=== PATIENT | female | born 1940 | race Caucasian/White ===

== ENCOUNTER 2018-11-25 12:45 | Emergency (ER) | payer MEDICARE ==
[2018-11-25] MEDS ORDERED: SUBLIMAZE 100 MCG/2 ML IV ONE ×3 (13:02→14:33)
[2018-11-25] MEDS ORDERED: SUBLIMAZE 100 MCG/2 ML ONE ×3 (13:04→14:35)
[2018-11-25] MEDS ORDERED: Sodium Chloride 0.9% 1000 ML 1,000 ML ONE (13:05)
--- NOTE | 2018-11-25 13:09 | ERPHSYRPT ---
- History of Present Illness Time Seen by Provider: 11/25/18 12:56 Source: patient, family Exam Limitations: no limitations Patient Subjective Stated Complaint: Pt states "I was getting out of the car and I slipped and my right hip really hurts." Triage Nursing Assessment: Pt alert and oriented X 3, skin pwd. Pt arrived in the ambulance bay via personal car. Pt right leg slightly shorter than the left. Pt has CSM X 4. PT moaning. Physician History: 78-year-old white female was brought by her son complains of pain in her right thigh knee hip symptoms since falling when getting getting into the car just prior to arrival. Patient has the above noted complaints. Past medical history includes migraines, coronary artery disease, hypercholesterolemia, high blood pressure, myocardial infarction, lung cancer, arthritis, osteoporosis, COPD, anxiety Past surgical history includes cardiac catheter, cardiac stent, lobectomy ( right and left lung, appendectomy, tubal ligation patient with a history of lung cancer with a nodule removed and lobectomy right and left lung Social history former smoker Timing/Duration: today (just prior to arrival) Severity: moderate Modifying Factors: Improves With: nothing Associated Symptoms: other (pain right thigh and knee), No nausea, No vomiting, No abdominal pain, No shortness of breath, No heartburn, No diaphoresis, No cough, No chills, No chest pain, No fever, No headaches, No loss of appetite, No malaise, No rash, No syncope, No seizure, No weakness Allergies/Adverse Reactions: morphine Adverse Reaction (Intermediate, Verified 05/26/15 03:19) PT STATES MAKES HER HEAR AND SEE THINGS THAT ARE NOT THERE. (HALLUCINATIONS) Home Medications: Multivitamin [Multi-Vitamin Daily] 1 each PO DAILY 08/09/14 [History] Aspirin [Ecotrin] 81 mg PO DAILY 05/25/15 [History] Atorvastatin Calcium [Lipitor 20MG Tablet] 20 mg PO DAILY 05/25/15 [History] Clopidogrel Bisulfate 75 mg [PLAVIX 75 MG Tablet] 75 mg PO DAILY 05/25/15 [History] Furosemide [Lasix] 40 mg PO DAILY 05/25/15 [History] Lisinopril 20 mg [Zestril 20 MG] 20 mg PO DAILY 05/25/15 [History] Hx Tetanus, Diphtheria Vaccination/Date Given: Yes Hx Influenza Vaccination/Date Given: Yes Hx Pneumococcal Vaccination/Date Given: Yes Immunizations Up to Date: Yes - Review of Systems Constitutional: No Fever, No Chills Eyes: No Symptoms Ears, Nose, & Throat: No Symptoms Respiratory: No Cough, No Dyspnea Cardiac: No Chest Pain, No Edema, No Syncope Abdominal/Gastrointestinal: No Abdominal Pain, No Nausea, No Vomiting, No Diarrhea Genitourinary Symptoms: No Dysuria Musculoskeletal: Fall, Other (pain right hip , thigh, knee), No Back Pain Skin: No Rash Neurological: No Dizziness, No Focal Weakness, No Sensory Changes Psychological: No Symptoms Endocrine: No Symptoms All Other Systems: Reviewed and Negative - Past Medical History Pertinent Past Medical History: Yes Neurological History: Migraines ENT History: No Pertinent History Cardiac History: Coronary Artery Disease, High Cholesterol, Hypertension, Myocardial Infarction ([place]) Respiratory History: Lung Cancer Endocrine Medical History: No Pertinent History Musculoskeletal History: Arthritis, Osteoporosis GI Medical History: No Pertinent History History: No Pertinent History Psycho-Social History: Anxiety Female Reproductive Disorders: No Pertinent History Other Medical History: [place] APRIL 2015 - Past Surgical History Past Surgical History: Yes Neuro Surgical History: No Pertinent History Cardiac: Cardiac Catheterization, Cardiac Stent Respiratory: Lobectomy, Other Gastrointestinal: Appendectomy Genitourinary: No Pertinent History Musculoskeletal: No Pertinent History Female Surgical History: Tubal Ligation Other Surgical History: hx lung ca, nodule removed. LOBECTOMY RIGHT AND LEFT LUNGS - Social History Smoking Status: Former smoker Exposure to second hand smoke: Yes Drug Use: none Patient Lives Alone: Yes - Female History Hx Now: No - Nursing Vital Signs Nursing Vital Signs: Initial Vital Signs Temperature 97.6 F 11/25/18 12:47 Pulse Rate 114 H 11/25/18 12:47 Respiratory Rate 20 11/25/18 12:47 Blood Pressure 97/62 11/25/18 12:47 O2 Sat by Pulse Oximetry 98 11/25/18 12:47 Pain Scale Pain Intensity 6 - Physical Exam General Appearance: mild distress, alert Eye Exam: PERRL/EOMI, eyes nml inspection Ears, Nose, Throat Exam: normal ENT inspection, TMs normal, pharynx normal, moist mucous membranes Neck Exam: normal inspection, non-tender, supple, full range of motion Respiratory Exam: normal breath sounds, lungs clear, No respiratory distress Cardiovascular Exam: regular rate/rhythm, normal heart sounds, normal peripheral pulses Gastrointestinal/Abdomen Exam: soft, normal bowel sounds, No tenderness, No mass Back Exam: normal inspection, normal range of motion, No CVA tenderness, No vertebral tenderness Extremity Exam: other (Pain with palpation right proximal thigh, distal thigh., Decreased range of motion right hip and knee secondary to pain.), No normal range of motion Neurologic Exam: alert, oriented x 3, cooperative, tooling mechanic II-XII nml as tested, normal mood/affect, nml cerebellar function, nml station & gait, sensation nml, No motor deficits Skin Exam: normal color, warm, dry, No rash SpO2 Interpretation: normal (98%) SpO2: 98 - Course Nursing assessment & vital signs reviewed: Yes EKG Interpreted by Me: RATE (102 bpm), Sinus Tach, NORMAL AXIS, Other (EKG: Sinus tachycardia, 102 bpm, normal axis, no acute ST or T wave changes, essentially normal EKG) - Radiology Exams Right Hip X-ray Interpretation: Discussed w/ radiologist (x-ray right hip: Impression: Slightly impacted and angulated acute femur neck fracture. Elsewhere osteopenia and heavy scattered vascular calcifications.) Pelvis X-ray Interpretation: Discussed w/ radiologist (x-ray pelvis impression new slightly impacted right femur neck fractu Elsewhere stable. Osteopenia and heavy scattered vascular calcifications.) Ordered Tests: Active Orders 24 hr Category Date Time Status EKG-ER Only STAT Care 11/25/18 13:40 Active FEMUR Stat Exams 11/25/18 13:03 Completed PELVIS (1 OR 2 VIEWS) Stat Exams 11/25/18 13:03 Completed Medication Summary Generic Name Dose Route Start Last Admin Trade Name Freq PRN Reason Stop Dose Admin Sodium Chloride 1,000 mls @ 100 mls/hr 11/25/18 13:15 11/25/18 13:11 Sodium Chloride 0.9% 1000 Ml IV 12/25/18 13:14 100 mls/hr .Q10H CLAY Administration Discontinued Medications Generic Name Dose Route Start Last Admin Trade Name Freq PRN Reason Stop Dose Admin Fentanyl Citrate 25 mcg 11/25/18 13:02 11/25/18 13:10 Sublimaze 100 Mcg/2 Ml IV 11/25/18 13:03 25 mcg STAT ONE Administration Fentanyl Citrate Confirm 11/25/18 13:04 Sublimaze 100 Mcg/2 Ml Administered 11/25/18 13:05 Dose 100 mcg .ROUTE .STK-MED ONE Fentanyl Citrate 25 mcg 11/25/18 13:37 11/25/18 13:43 Sublimaze 100 Mcg/2 Ml IV 11/25/18 13:38 25 mcg STAT ONE Administration Fentanyl Citrate Confirm 11/25/18 13:42 Sublimaze 100 Mcg/2 Ml Administered 11/25/18 13:43 Dose 100 mcg .ROUTE .STK-MED ONE Fentanyl Citrate 25 mcg 11/25/18 14:33 11/25/18 14:36 Sublimaze 100 Mcg/2 Ml IV 11/25/18 14:34 25 mcg STAT ONE Administration Fentanyl Citrate Confirm 11/25/18 14:35 Sublimaze 100 Mcg/2 Ml Administered 11/25/18 14:36 Dose 100 mcg .ROUTE .STK-MED ONE - Progress Progress: improved Progress Note: 11/25/18 13:41 Patient's x-ray of her right femur remarkable for slightly impacted and angulated acute femur neck fracture. Patient has been given fentanyl 25 g IV she will be given a second 25 g blood pressure is around 98 systolic The patient's son, Dr. Upton states that she has had a blood drawn today and does not want further blood at this point. He does wish that the patient be transferred to [facility] Will obtain EKG and plan to talk with the hospitalist for transfer. Impression 1 accidental fall. 2 right femur neck fracture. 11/25/18 14:58 Patient has received fentanyl 25 g IV 3 for pain control she is also receiving IV normal saline. I've contacted Dr. Rondon, hospitalist at [facility] through [facility] call, I have discussed the patient's case with him he has accepted the patient for transfer to [facility]. - Departure Time of Disposition: 14:59 Departure Disposition: Transfer ([facility] Dr. Rondon) Clinical Impression: Accidental fall Qualifiers: Encounter type: initial encounter Qualified Code(s): W19.XXXA - Unspecified fall, initial encounter Fracture of neck of right femur Qualifiers: Encounter type: initial encounter Fracture type: closed Qualified Code(s): S72.001A - Fracture of unspecified part of neck of right femur, initial encounter for closed fracture Condition: Fair Critical Care Time: No Referrals: SAFIA MAJOR [Primary Care Provider] -
[2018-11-25] MEDS ORDERED: Sodium Chloride 0.9% 1000 ML 1,000 ML IV SCH (13:15)
--- NOTE | 2018-11-25 13:34 | XRAY ---
Indication: Pain following fall. Comparison: None 2 views of the right femur demonstrates slightly impacted and angulated acute femur neck fracture. Elsewhere osteopenia and heavy scattered vascular calcifications.
--- NOTE | 2018-11-25 13:34 | XRAY ---
Indication: Pain following fall. Comparison: August 06, 2011. AP pelvis demonstrates new slightly impacted right femur neck fracture. Elsewhere stable osteopenia and heavy scattered vascular calcifications.
[2018-11-25 14:45] VITALS: BP 106/58
[2018-11-25 14:55] VITALS: PULSE 100
[2018-11-25 15:00] VITALS: O2SAT 98
== END 2018-11-25 15:28 | disposition short-term general hospital (02) ==
LOC: ED 12:45
DX: S72.001A Fracture of unspecified part of neck of right femur, initial encounter for closed fracture (principal); W01.198A Fall on same level from slipping, tripping and stumbling with subsequent striking against other object, initial encounter; M25.551 Pain in right hip; Z85.118 Personal history of other malignant neoplasm of bronchus and lung; E78.00 Pure hypercholesterolemia, unspecified; I10 Essential (primary) hypertension; M19.90 Unspecified osteoarthritis, unspecified site; M81.0 Age-related osteoporosis without current pathological fracture; J44.9 Chronic obstructive pulmonary disease, unspecified; I25.10 Atherosclerotic heart disease of native coronary artery without angina pectoris; F41.9 Anxiety disorder, unspecified; Z79.899 Other long term (current) drug therapy; I25.2 Old myocardial infarction
CPT/HCPCS: 72170; 73552; 93005; 96360; 96361; 96374; 96375; 96376; 99285; J3010